=== PATIENT | female | born 1985 | race Caucasian/White ===

== ENCOUNTER → 2021-08-22 08:31 | Outpatient (CLI) | payer OTHER, SELFPAY ==
--- NOTE | 2021-08-22 | DI.US.S_ITS ---
ULTRASOUND OF LEFT BREAST: 08/22/2021 CLINICAL: Palpable left breast lump. Comparison is made to exam dated: 08/22/2021 mammogram - [facility]. Color flow ultrasound of the left breast was performed. Louis scale images of the real-time examination were reviewed. There is a new 3.1 cm x 1.3 cm x 2.2 cm irregular mass with a spiculated margin in the left breast at 12 o'clock anterior depth. This irregular mass is hypoechoic. Color flow imaging demonstrates that there is increased vascularity. A left axillary lymph node and a straight a thickened cortex measuring 5 mm. IMPRESSION: HIGHLY SUGGESTIVE OF MALIGNANCY The new 3.1 cm x 1.3 cm x 2.2 cm irregular mass in the left breast is highly suggestive of malignancy. An ultrasound guided biopsy of the mass and the left axillary lymph node with a thickened cortex is recommended. These findings and recommendation were discussed with the patient by Dr Amador. This exam was interpreted at Station ID: [id number]. Electronically Signed By: Dave Wen acr/:08/22/2021 11:14:53 letter sent: Biopsy Required Ultrasound BI-RADS: 5 Highly suggestive of malignancy
--- NOTE | 2021-08-22 | DI.MG.S_ITS ---
BILATERAL DIGITAL DIAGNOSTIC MAMMOGRAM 3D/2D: 08/22/2021 CLINICAL: Baseline exam. No prior exams were available for comparison. The tissue of both breasts is extremely dense, which lowers the sensitivity of mammography. There is 1.4 cm x 1.7 cm irregular architectural distortion with a spiculated margin in the left breast at 12 o'clock anterior depth. There is nipple retraction associated with the architectural distortion. No other significant masses, calcifications, or other findings are seen in either breast. IMPRESSION: INCOMPLETE: NEEDS ADDITIONAL IMAGING EVALUATION The 1.4 cm x 1.7 cm irregular architectural distortion in the left breast has a differential diagnosis of carcinoma and is indeterminate. An ultrasound is recommended. US will be performed and dictated separately. This exam was interpreted at Station ID: [id number]. NOTE: For mammograms, a report in lay terms will be sent to the patient. Approximately 15% of breast malignancies will not be visualized mammographically. In the management of a palpable breast mass, a negative mammogram must not discourage biopsy of a clinically suspicious lesion. Electronically Signed By: Dave Wen acr/:08/22/2021 09:11:22 ACR BI-RADS Category 0: Incomplete [id number]
== END ==
PROVIDERS: PCP Physician Assistant Medical; Referring Provider Physician Assistant Medical; Visit Provider Physician Assistant Medical
DX: N63.25 Unspecified lump in the left breast, overlapping quadrants (principal); R92.8 Other abnormal and inconclusive findings on diagnostic imaging of breast
CPT/HCPCS: 76642; 77066; G0279

== ENCOUNTER → 2021-09-19 11:00 | Outpatient (CLI) | payer OTHER, SELFPAY ==
--- NOTE | 2021-09-19 | DI.MRI.S_ITS ---
BREAST MRI OF BOTH BREASTS: 09/19/2021 CLINICAL: Left breast Cancer. PROCEDURE: MR BREAST BI WO/W CON INDICATIONS: LEFT BREAST CANCER TECHNIQUE: The patient was placed prone in a dedicated breast imaging coil. Precontrast axial STIR and 3D FLASH without fat saturation sequences were obtained. Both before and after bolus injection of contrast, sequential 1-minute axial 3D FLASH with fat saturation sequences for 3 time points, with subtraction images and maximum intensity projections (MIP's) generated. Delayed sagittal FLASH images with fat saturation were also obtained. Computer-aided detection, including computer algorithm analysis of MRI image data for lesion detection and characterization, pharmacokinetic analysis, with further physician review for interpretation, was performed. COMPARISON: [facility], , BREAST LIMITED, 08/22/2021, 10:04. FINDINGS: Image quality: Excellent. There is mild background parenchymal enhancement. Right breast: The right breast demonstrates no abnormal focus, mass, or abnormal enhancement. No axillary or internal mammary chain adenopathy. Left breast: The left breast has a 2.4 x 2.0 x 4.0 centimeter irregular spiculated mass in the 12 o'clock position which extends into the nipple-areolar complex and the skin superior to the areola. A 4 mm enhancing focus in the axillary tail 4.7 cm from the nipple is seen. Abutting the chest wall there is a linear focus in the 2 o'clock position measuring 1.1 x 2.4 cm and 4 mm thick, probably a prominent vein. Several enlarged level I lymph nodes measuring up to 1.1 cm are noted in the left axilla, one of which contains a biopsy clip. No level II or level III lymph nodes. There is a prominent draining vein of the left breast draining medially into the internal mammary vein; however there is no internal mammary chain adenopathy. No chest wall invasion. Miscellaneous: The visualized upper abdomen, heart, and mediastinum are normal. IMPRESSION: KNOWN BIOPSY PROVEN MALIGNANCY 1. Known biopsy proven left breast cancer measuring approximately 2.4 x 2.0 x 4.0 cm in the subareolar and 12 o'clock position with invasion into the nipple areola complex and skin superior to the areola. 2. Multiple level I left axillary lymph nodes. COMMENT: The imaging literature indicates that a negative contrast breast MRI examination has a high sensitivity and a moderate specificity for detecting and excluding invasive carcinomas to a detection threshold of 3-5 mm; nonetheless, appropriate clinical and mammographic follow-up are recommended. MRI is not sensitive for detecting DCIS (ductal carcinoma in situ) and may not detect large invasive neoplasms that show only minimal enhancement such as mucinous carcinoma. If there are suspicious calcifications or clinically worrisome palpable masses, then biopsy should still be considered. Invasive neoplasms can be hidden by co-existent and benign enhancement caused by mastitis, hormone therapy effects, radiation therapy, , and recent biopsy or surgery. False positive examinations can occur in a number of circumstances, including breasts that have recently been subject to invasive procedures and those that contain atypical ductal hyperplasia, hormonally stimulated glandular tissue, fat necrosis, or radial scars. This exam was interpreted at Station ID: [id number]. Electronically Signed By: Dave Wen acr/:09/19/2021 13:46:26 ACR BI-RADS Category 6: Known biopsy proven malignancy [id number]
== END ==
PROVIDERS: PCP Physician Assistant Medical; Referring Provider Physician Assistant Medical; Visit Provider Physician Assistant Medical
DX: C50.812 Malignant neoplasm of overlapping sites of left female breast (principal); R59.0 Localized enlarged lymph nodes
CPT/HCPCS: 77049; A9579

== ENCOUNTER → 2022-02-25 07:59 | Outpatient (CLI) | payer OTHER, SELFPAY ==
--- NOTE | 2022-02-25 | DI.MRI.S_ITS ---
BREAST MRI OF THE LEFT BREAST: 02/25/2022 CLINICAL: Malignant neoplasm of overlapping sites of the left breast. PROCEDURE: MR BREAST BI WO/W CON INDICATIONS: Malignant neoplasm of overlapping sites of left fe TECHNIQUE: The patient was placed prone in a dedicated breast imaging coil. Precontrast axial STIR and 3D FLASH without fat saturation sequences were obtained. Both before and after bolus injection of contrast, sequential 1-minute axial 3D FLASH with fat saturation sequences for 3 time points, with subtraction images and maximum intensity projections (MIP's) generated. Delayed sagittal FLASH images with fat saturation were also obtained. CONTRAST: 20 cc ProHance IV contrast. Computer-aided detection, including computer algorithm analysis of MRI image data for lesion detection and characterization, pharmacokinetic analysis, with further physician review for interpretation, was performed. COMPARISON: [facility], MG, MG POST CLIP PLACEMENT LEFT, 09/05/2021, 9:13. [facility], US, US BIOPSY BREAST 1ST LESION LEFT, 09/05/2021, 8:09. [facility], US, US BIOPSY BREAST ADDITIONAL LESION LEFT, 09/05/2021, 8:09. [facility], US, US BREAST LT LIMITED, 08/22/2021, 10:04. [facility], MG, MM DIAGNOSTIC MAMMO BI, 08/22/2021, 9:07. [facility], MR, MR BREAST BI WO/W CON, 09/19/2021, 11:07. FINDINGS: Image quality: Excellent. There is mild background parenchymal enhancement. Right breast: No mass or suspicious enhancement. Left breast: There is minimal heterogeneous enhancement at the retroareolar 12 o'clock left breast, (), substantially improved compared to MRI 09/19/2021. Kinetic analysis demonstrates slow initial phase and persistent delayed phase. Mass effect at this site is substantially decreased. There is decreased T2 hyperintense signal. There is mild skin retraction just above the nipple. There is a biopsy clip at the superior aspect. The previously seen 1 o'clock prepectoral enhancement is decreased. There is a small lymph node at this site, (). Miscellaneous: Upper left axillary shotty lymph nodes are decreased. For example a node measuring at 0.6 cm, (119), previously 1.1 cm. Susceptibility artifact from prior biopsy clip at the left axilla. IMPRESSION: KNOWN BIOPSY PROVEN MALIGNANCY 1. Left breast: 12 o'clock retroareolar mass demonstrates substantial response to treatment. There is minimal residual heterogeneous enhancement and increased skin retraction. 2. Left axilla nodes are decreased in size. Previously biopsy-proven malignancy. 3. Left breast: 1 o'clock prepectoral enhancement is substantially decreased. There is a small lymph node at this site which is indeterminate for treated disease. 4. Right breast: No mass or suspicious enhancement. BIRADS 6 COMMENT: The imaging literature indicates that a negative contrast breast MRI examination has a high sensitivity and a moderate specificity for detecting and excluding invasive carcinomas to a detection threshold of 3-5 mm; nonetheless, appropriate clinical and mammographic follow-up are recommended. MRI is not sensitive for detecting DCIS (ductal carcinoma in situ) and may not detect large invasive neoplasms that show only minimal enhancement such as mucinous carcinoma. If there are suspicious calcifications or clinically worrisome palpable masses, then biopsy should still be considered. Invasive neoplasms can be hidden by co-existent and benign enhancement caused by mastitis, hormone therapy effects, radiation therapy, , and recent biopsy or surgery. False positive examinations can occur in a number of circumstances, including breasts that have recently been subject to invasive procedures and those that contain atypical ductal hyperplasia, hormonally stimulated glandular tissue, fat necrosis, or radial scars. Dictated by: Ravindra Go M.D. on 02/25/2022 at 11:39 This exam was interpreted at Station ID: [id number]. Electronically Signed By: Ravindra Go M.D. slc/:02/25/2022 12:08:37 ACR BI-RADS Category 6: Known biopsy proven malignancy [id number]
== END ==
PROVIDERS: PCP Physician Assistant Medical; Referring Provider Internal Medicine Hematology & Oncology; Visit Provider Internal Medicine Hematology & Oncology
DX: C50.812 Malignant neoplasm of overlapping sites of left female breast (principal); C77.3 Secondary and unspecified malignant neoplasm of axilla and upper limb lymph nodes
CPT/HCPCS: 77049